=== PATIENT | female | born 1940 | race Caucasian/White ===

== ENCOUNTER → 2017-04-09 | Outpatient (CLI) | payer OTHER, MEDICARE ==
[~2017-04-09] VITALS: Ht 160 cm; Wt 46.7 kg
[~2017-04-09] MED LIST: ADULT LOW DOSE81 MG PO; AVONEX; CALCIUM 600 +1 EAC1 PO; CLONAZEPAM PO; GLUCOSAMINE &1 EACH PO; HYDROCODONE-AP1 EAC6 PO; IRON325 PO; LIPITOR10 MG PO; MULTIVITAMINS PO; PREMARIN0.3 MG PO; SYNTHROID150 MCG PO; SYNTHROID175 MCG PO
--- NOTE | ~2017-04-09 | P ---
[facility] [place] [address] PROCEDURE REPORT Name: SIMONE WILLINGHAM Room #: REG [facility]#: [id number] Admission: 04/09/17 Attend Phys: Benji Chavarria MD Discharge: Date of : 36 Report #: [id number] THIS REPORT FOR: //name// CC: Benji Narayanan MD BRIEF HISTORY: The patient is a 76-year-old woman for high risk screening colonoscopy due to prior history of colon cancer resected about 1 year ago. PREOPERATIVE DIAGNOSIS: High risk screening colonoscopy. POSTOPERATIVE DIAGNOSES: 1. Surgical changes consistent with right hemicolectomy. 2. History of colon cancer. MEDICATIONS: Deep sedation with propofol per anesthesia. SPECIMEN: None. ESTIMATED BLOOD LOSS: None. PROCEDURE: Colonoscopy to proximal colon, anastomosis and terminal ileum. FINDINGS: Prior to propofol sedation, procedure of colonoscopy discussed with the patient as well as potential risks and its complications. She indicates she understands and desires to proceed. DESCRIPTION OF PROCEDURE: With the patient in left lateral decubitus position, digital examination was completed which revealed no abnormalities. Subsequently, the [employer] video colonoscope was introduced into the rectum, advanced under direct vision to the surgical anastomosis. This was done without difficulty. The surgical anastomosis was identified, was noted to be patent without stricture or ulceration. The distal segment of the terminal ileum was inspected and noted to be unremarkable. At that point, the scope was slowly withdrawn and careful circumferential views obtained. Upon slow withdrawal of the scope, the prep was noted to be excellent. The mucosa was within normal limits, normal vascular pattern, normal light reflex. As we withdrew the scope, no mucosal abnormalities were seen. No polyps were identified. Scope was withdrawn and the remaining colon was within normal limits. Scope was withdrawn in the rectum. Upon retroflexion, no abnormalities were seen. Scope was withdrawn. The patient tolerated the procedure well. CONDITION OF THE PATIENT UPON DISCHARGE: Following procedure, the patient drowsy, aroused, conversant and will be discharged home when fully ambulatory. [facility] [address] [place] [address] PROCEDURE REPORT Name: MAULIKSIMONE ANG Room #: REG [facility] [place]#: [id number] Admission: 04/09/17 Attend Phys: Benji Chavarria MD Discharge: Date of : 36 Report #: [id number] INSTRUCTIONS TO THE PATIENT AND FAMILY AT THE TIME OF DISCHARGE: No neoplastic lesions seen today. Suggest high fiber diet for the patient. 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 Suggest followup colon exam in 3 years. Last colonoscopy was little more than a year ago at which time she was diagnosed with colon cancer. Withdrawal time from the surgical anastomosis was 6 minutes and 57 seconds. <ELECTRONICALLY SIGNED> By: Benji Chavarria MD 04/09/17 1108 [id number] Benji Chavarria MD /dorothy
== END | disposition home or self-care (01) ==
LOC: GI 07:37
DX: Z08 Encounter for follow-up examination after completed treatment for malignant neoplasm (principal); Z85.038 Personal history of other malignant neoplasm of large intestine; D50.0 Iron deficiency anemia secondary to blood loss (chronic); E78.00 Pure hypercholesterolemia, unspecified; E03.9 Hypothyroidism, unspecified; M81.0 Age-related osteoporosis without current pathological fracture; G35 Multiple sclerosis; Z98.0 Intestinal bypass and anastomosis status; Z87.891 Personal history of nicotine dependence; Z90.710 Acquired absence of both cervix and uterus; Z98.890 Other specified postprocedural states; Z90.49 Acquired absence of other specified parts of digestive tract; Z79.82 Long term (current) use of aspirin
CPT/HCPCS: 62110; 62900